=== PATIENT | female | born 1955 ===

== ENCOUNTER 2020-07-18 07:56 | Outpatient (CLI) | payer OTHER, SELFPAY ==
[2020-07-20 08:35] LABS: SARS-CoV-2 RNA Not Detected (NotDetected)
[2020-07-20 08:36] LABS: SARS-CoV-2 RNA Source Nasal/Nares
== END 2020-07-18 08:16 ==
DX: Z11.59 Encounter for screening for other viral diseases (principal); Z01.818 Encounter for other preprocedural examination
CPT/HCPCS: U0003